=== PATIENT | female | born 1980 | race Caucasian/White ===

== ENCOUNTER → 2019-09-04 | Day surgery (SDC) | payer OTHER ==
[2019-08-29 14:29] VITALS: BMI 33.1
[2019-08-29 15:22] LABS: BHCG - Serum Negative (NEGATIVE); Pregs Control Background? CLEAR/WHITE (CLR/WHITE); Pregs Control Bar Appear? YES (CONTROL BAR)
[2019-08-29 15:23] LABS: Hemoglobin 9.4 g/dL (12.0-16.0); Mean Corpuscular HGB CONC 33.4 g/dL (32.0-36.0); Mean Corpuscular Hemoglobin 27.5 pg (27.0-31.0); Mean Corpuscular Volume 82.3 fL (78.0-98.0); Mean Platelet Volume 9.3 fL (7.4-10.4); Platelet Count 226 thou/uL (130-400); RBC Distribution Width 14.9 % (11.5-14.5); Red Blood Cell (RBC) Count 3.43 mill/uL (4.20-5.40); White Blood Cell (WBC) Count 5.6 thou/uL (4.8-10.8)
[~2019-09-04] MED LIST: Dexamethasone 20 MG/5 ML VIAL ONE; Fentanyl 100 MCG/2 ML VIAL ONE; Ketorolac Tromethamine 30 MG/ML VIAL ONE; Lidocaine 1% PF 5 ML VIAL ONE; Meperidine HCl/PF 25 MG/ML VIAL ONE; Midazolam HCl 2 mg/2 ml Vial ONE; Ondansetron PF 4 MG/2 ML Vial ONE; PROPOFOL 200 MG/20 ML VIAL ONE
--- NOTE | 2019-09-04 07:23 | HP ---
REASON FOR ADMISSION: Abnormal uterine bleeding with simple hyperplasia without atypia on EMB. SCHEDULED PROCEDURE: D and C, hysteroscopy. HISTORY OF PRESENT ILLNESS: The patient is a 39-year-old, 3, para 1, who has been my patient for a long time. 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 She developed intermenstrual bleeding and had an ultrasound with a 19 mm endometrial thickness. She has known PCOS which increased her risk of hyperplasia. EMB revealed hyperplasia simple without atypia because of 5% to 10% risk of occult malignancy. Decision was made to proceed with D and C, hysteroscopy for complete sampling of the endometrial cavity. 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 PAST MEDICAL HISTORY: As noted in the HPI. PAST SURGICAL HISTORY: None. ALLERGIES: DENIES. MEDICATIONS: Aygestin, , and montelukast. SOCIAL HISTORY: Denies tobacco, alcohol, or drug use. FAMILY HISTORY: Noncontributory. REVIEW OF SYSTEMS: Noncontributory. PHYSICAL EXAMINATION: VITAL SIGNS: White female, 5 feet 4 inches, 192, BMI 33. Blood pressure 136/72, pulse 99, respirations 18. HEENT: Within normal limits. LUNGS: Clear to auscultation bilaterally. HEART: Regular rhythm. BREASTS: No masses bilaterally. ABDOMEN: Soft, nontender. No rebound or guarding. : Vulva without lesions. Vagina without discharge. Cervix, nulliparous. Uterus, anteverted, 6- to 8-week size. Adnexa, no masses bilaterally. EXTREMITIES: No clubbing, cyanosis, or edema. DIAGNOSTIC DATA: Ultrasound and endometrial biopsy are noted. IMPRESSION: Simple hyperplasia with atypia. PLAN: D and C, hysteroscopy. The patient understands risks and benefits of procedure, bleeding, infection, perforation, and persistence of abnormal bleeding. Job ID: [id number]
--- NOTE | 2019-09-04 11:59 | OP ---
DATE OF PROCEDURE: 09/04/2019 PREOPERATIVE DIAGNOSIS: Simple endometrial hyperplasia without atypia. POSTOPERATIVE DIAGNOSIS: Simple endometrial hyperplasia without atypia. PROCEDURE PERFORMED: D and C hysteroscopy. ANESTHESIA: General endotracheal. ESTIMATED BLOOD LOSS: 25 mL. COMPLICATIONS: None. DRAINS: None. SPECIMENS: Endometrial curettings. OPERATIVE FINDINGS: 1. Pre and post sound to 8 to 9 cm. 2. Endometrial cavity with very proliferative appearing endometrium especially anteriorly, removed with curettage. 3. No evidence of perforation. 4. Total fluid volume greater than 500 mL, deficit 180 mL of normal saline with approximately 100 to 125 mL of normal saline leaked on the floor with the retrieval bag. DISPOSITION: Recovery room in good condition. DESCRIPTION OF PROCEDURE: The patient received appropriate antibiotics and DVT prophylaxis, was prepped and draped in dorsal lithotomy. Bladder drained of clear urine. Cervix identified, sounded to 8 to 9 cm, serially dilated up to appropriate level. A 5 mm hysteroscope was introduced max pressure of 80 mmHg with normal saline. Findings as noted. The operative findings were noted. Hysteroscope was removed and curetting was carried out. It was collected with a spoon and placed on a Telfa for pathologic analysis permanent. Hysteroscope was reintroduced. Some tissue was still noted and so curetting was repeated. Hysteroscope was reintroduced and no evidence of significant amount of tissue remaining was noted. No evidence of perforation was noted. The tenaculum was removed. The cervix was noted to be not bleeding. Speculum removed and the patient was awakened and extubated to recovery room in good condition. Job ID: [id number]
== END ==
LOC: SDC 10:08
PROVIDERS: ATTEND Obstetrics & Gynecology
PROC: 0UJD8ZZ Inspection of Uterus and Cervix, Via Natural or Artificial Opening Endoscopic (ICD-10-PCS; principal; 2019-09-04)
PROC: 0UDB7ZX Extraction of Endometrium, Via Natural or Artificial Opening, Diagnostic (ICD-10-PCS; principal; 2019-09-04)
DX: N85.02 Endometrial intraepithelial neoplasia [EIN] (principal); E28.2 Polycystic ovarian syndrome; D68.52 Prothrombin gene mutation; Z79.899 Other long term (current) drug therapy
CPT/HCPCS: 84703; 85027; 86850; 86900; 86901; 88305; J0690; J1100; J1885; J2001; J2175; J2250; J2405; J2704; J3010

== ENCOUNTER 2019-12-08 06:37 | Outpatient (CLI) | payer OTHER ==
[2019-12-08 12:26] VITALS: BMI 32.5
[2019-12-08 14:05] LABS: #Eosinphils 0.1 thou/uL (0.0-0.7); #Lymphocytes 2.1 thou/uL (1.20-3.40); #Monocytes 0.2 thou/uL (0.11-0.59); #Neutrophils 2.4 thou/uL (1.40-6.50); %Basophils 0.9 % (0.0-1.0); %Eosinophils 1.1 % (0.0-10.0); %Lymphocytes 43.9 % (21.0-51.0); %Monocytes 4.2 % (0.0-10.0); %Neutrophils 49.8 % (42.0-75.0); Hemoglobin 12.6 g/dL (12.0-16.0); Mean Corpuscular HGB CONC 31.7 g/dL (32.0-36.0); Mean Corpuscular Hemoglobin 25.5 pg (27.0-31.0); Mean Corpuscular Volume 80.6 fL (78.0-98.0); Mean Platelet Volume 11.3 fL (7.4-10.4); Platelet Count 172 thou/uL (130-400); RBC Distribution Width 21.1 % (11.5-14.5); Red Blood Cell (RBC) Count 4.94 mill/uL (4.20-5.40); White Blood Cell (WBC) Count 4.8 thou/uL (4.8-10.8)
[2019-12-09 17:20] LABS: SARS-CoV-2 MS2 Positive; SARS-CoV-2 N Gene Negative; SARS-CoV-2 S Gene Negative; SARS-CoV-2 orf1ab Negative
== END 2019-12-08 06:38 | disposition home or self-care (01) ==
LOC: LABBT 06:37
PROVIDERS: ATTEND Obstetrics & Gynecology
DX: Z01.812 Encounter for preprocedural laboratory examination (principal); Z11.59 Encounter for screening for other viral diseases; N85.01 Benign endometrial hyperplasia
CPT/HCPCS: 84702; 85025; 87635; U0003

== ENCOUNTER 2019-12-12 06:03 | Day surgery (SDC) | payer OTHER ==
[2019-12-12] MEDS ORDERED: CeleCOXIB 100 MG CAP ONE (06:12)
[2019-12-12] MEDS ORDERED: Gabapentin 300 MG CAP ONE (06:12)
[2019-12-12] MEDS ORDERED: Famotidine/PF 20 mg/2ml Vial ONE (06:13)
--- NOTE | 2019-12-12 06:27 | HP ---
REASON FOR ADMISSION: Complex hyperplasia with focal atypia. SCHEDULED PROCEDURE: Total laparoscopic hysterectomy, bilateral salpingectomy. HISTORY OF PRESENT ILLNESS: Ms. Stein is a 39-year-old 3, para 1, AB2, who has been my patient for a long time. She had a D and C, hysteroscopy back in August, which revealed complex hyperplasia with focal atypia. Because of this diagnosis and the risk of malignancy even after D and C developing in the future, the patient desires definitive management with hysterectomy. 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 2. SAB x2. 3. History of menorrhagia with PCOS. 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 PAST SURGICAL HISTORY: and D and C with hysteroscopy. ALLERGIES: DENIES. MEDICATIONS: Progestin and montelukast. SOCIAL HISTORY: Denies tobacco, alcohol, or IV drug abuse. FAMILY HISTORY: Noncontributory. PHYSICAL EXAMINATION: GENERAL: White female, 5 feet 4 inches, 195, BMI 33, blood pressure 128/82. HEENT: Within normal limits. LUNGS: Clear to auscultation bilaterally. HEART: Regular rhythm. BREASTS: No masses bilaterally. ABDOMEN: Soft, nontender. No rebound or guarding. PELVIC: Vulva, without lesions. Vagina, discharge. Cervix, nulliparous. Uterus, anteverted, 6 weeks to 8 weeks size, boggy. Adnexa, no masses bilaterally. EXTREMITIES: Without clubbing, cyanosis, or edema. LABORATORY DATA: D and C specimen from 09/05 reveals complex hyperplasia with focal atypia, squamous metaplasia with central necrosis, carcinoma not seen. IMPRESSION: Complex hyperplasia with atypia in a 39-year-old with PCOS and a prothrombin mutation. PLAN: Total laparoscopic hysterectomy, bilateral salpingectomy, appropriate antibiotic and DVT prophylaxis with SCDs. We will initiate Lovenox 40 daily postoperatively approximately 12 to 18 hours. We will continue that for 2 to 4 weeks until the patient is at normal ambulation. The patient understands small risk of occult malignancy to be found at the time of surgery, which may require referral for laparoscopic lymphadenectomy by pier hand helper/oncologist in the future if deemed necessary. Job ID: [id number]
[2019-12-12] MEDS ORDERED: Fentanyl 100 MCG/2 ML VIAL ONE ×2 (06:41→09:45)
[2019-12-12] MEDS ORDERED: HYDROmorphone 2 MG/ML VIAL ONE (06:42)
[2019-12-12] MEDS ORDERED: Bupivacaine PF 0.5% 30 ML VIAL ONE (06:59)
[2019-12-12] MEDS ORDERED: Lidocaine 1% w/Epinephrine 1:100K 20 ML VIAL ONE (06:59)
[2019-12-12] MEDS ORDERED: Midazolam HCl 2 mg/2 ml Vial ONE (07:16)
[2019-12-12] MEDS ORDERED: Ondansetron PF 4 MG/2 ML Vial IVP PRN (07:47)
[2019-12-12] MEDS ORDERED: HYDROcodone/Acetaminophen 5/325 mg Tablet PO PRN (07:47)
[2019-12-12] MEDS ORDERED: Morphine 4 MG/ML VIAL SLOW IVP PRN (07:47)
[2019-12-12] MEDS ORDERED: diphenhydrAMINE 25 MG CAP PO PRN (07:47)
[2019-12-12] MEDS ORDERED: Simethicone Chewable 80 MG TAB PO PRN (07:47)
[2019-12-12] MEDS ORDERED: Promethazine HCl 25 MG/ML VIAL IM PRN (07:47)
[2019-12-12] MEDS ORDERED: Zolpidem Tartrate 5 MG TAB PO PRN (07:47)
[2019-12-12] MEDS ORDERED: Bisacodyl 10 MG SUPP PR PRN (07:47)
[2019-12-12] MEDS ORDERED: Non-Formulary Medication 1 EACH PO PRN (09:30)
[2019-12-12] MEDS ORDERED: Promethazine HCl 25 MG/ML VIAL IM/IV PRN (09:30)
[2019-12-12] MEDS ORDERED: Ondansetron HCl/PF 4 MG/2 ML Vial IVP PRN (09:30)
[2019-12-12] MEDS: Loratadine 10 MG TAB PO SCH (12:00)
[2019-12-12] MEDS: Sodium Chloride 0.9% 1,000 ML IV SCH ×2 (12:00→12:12)
[2019-12-12] MEDS: Escitalopram Oxalate 10 mg Tablet PO SCH (12:00)
[2019-12-12] MEDS: Ketorolac Tromethamine 30 MG/ML VIAL IVP SCH ×2 (12:13→17:53)
[2019-12-12] MEDS ORDERED: Dexamethasone 20 MG/5 ML VIAL ONE (12:57)
[2019-12-12] MEDS ORDERED: Glycopyrrolate 0.2 MG/ML 5 ML SYRINGE ONE (12:57)
[2019-12-12] MEDS ORDERED: PROPOFOL 200 MG/20 ML VIAL ONE (12:57)
[2019-12-12] MEDS ORDERED: Lidocaine 1% PF 5 ML VIAL ONE (12:57)
[2019-12-12] MEDS ORDERED: Rocuronium Bromide 10 MG/ML (10ML VIAL) ONE (12:57)
[2019-12-12] MEDS ORDERED: Ondansetron PF 4 MG/2 ML Vial ONE (12:57)
[2019-12-12] MEDS ORDERED: Enoxaparin Sodium 40 MG/0.4 ML SYRINGE SC SCH (18:00)
--- NOTE | 2019-12-12 18:50 | OP ---
DATE OF PROCEDURE: 12/12/2019 PREOPERATIVE DIAGNOSES: Complex hyperplasia with focal atypia and menorrhagia. POSTOPERATIVE DIAGNOSES: Complex hyperplasia with focal atypia and menorrhagia plus possible endometriosis in the bladder. PROCEDURES PERFORMED: Total laparoscopic hysterectomy with bilateral salpingectomy with excision of bladder peritoneum endometriosis. BARGE WORKER: Olena Pace PA-C ESTIMATED BLOOD LOSS: 75 mL. DRAINS: Terry to gravity. MEDICATIONS: 2 g of Ancef pre-incision, DVT prophylaxis, SCDs plus Lovenox started approximately 8 hours postoperatively secondary to history of prothrombin mutation. OPERATIVE FINDINGS: 1. Atypical scarring lesion noted on the bladder, excised approximately 5 mm. 2. Normal-appearing uterus. 3. Normal-appearing tubes and ovaries bilaterally. 4. Hemostasis, clear urine. COUNTS: Correct at the end of the procedure. DISPOSITION: Recovery room in good condition. DESCRIPTION OF PROCEDURE: After obtaining appropriate informed consent, the patient was taken to the operating room, where general endotracheal anesthesia was achieved without difficulty. The patient was prepped and draped in dorsal lithotomy position in Varun stirrups. Sliding speculum was placed in vagina, cervix identified, grasped with single-toothed tenaculum at 12 o'clock, sounded to 8 cm. The BRIANA manipulator with 5-cm vaginal obturator and 8-cm uterine obturator were placed without difficulty. Terry catheter placed. Tenaculum and speculum were removed. Muck Miner changed his gloves and turned attention to abdominal portion of the procedure. A 5 mL of Marcaine was injected in the superior aspect of the umbilicus. A 12-mm skin incision was made, and Veress needle was placed inside the abdominal cavity. Insufflation was carried out with carbon dioxide for a maximum pressure of 15, volume approximately 3 L. A 12-mm Casi balloon trocar was placed without difficulty. Confirmation of entry into the peritoneal cavity without trauma to the underlying viscera was noted. Findings as noted in the operative findings were noted. The patient was placed in steep Trendelenburg position. The right and left lateral da Patricio robot trocars were placed under direct visualization as well as an assistant housekeeping manager port in the right upper quadrant. Da Patricio robot was docked with monopolar scissors in the right hand and bipolar fenestrated forceps in the left. Lesion that was noted on the peritoneum of the bladder was excised mostly sharply with some cautery and removed and sent individually for pathology. Uterus was mobilized, and the fallopian tube on the left was coagulated and transected across the mesosalpinx and removed after this was done the utero-ovarian on the left was coagulated and transected, the round, the broad, down to the level of the internal cervical os. The vesicouterine peritoneal fold was incised sharply, dissected off the lower uterine segment, cervix, and upper vagina and skeletonization of the uterine vessels was carried out on this side. There were coagulated and transected. Attention was turned to the right side where the identical procedure was carried out, removing the fallopian tube, coagulating, and transecting the utero-ovarian, the round, the broad, and down to the uterine vessels. These were coagulated and transected as well. The vagina was entered at 12 o'clock and extended from 12 to 3 and 12 to 9, then from 9 to 6 and 3 to 6, completely amputating the specimen. The specimen was pulled into the vagina. Hemostasis was achieved along the cuff. The cuff was closed using a running continuous 2-0 PDS suture lock from right to left and then back to right. Bladder was backfilled. No evidence of the bladder to be incorporated into the vaginal cuff closure or injured from the excision of the peritoneum. Specimen was noted. Suction irrigation was carried out. Good hemostasis was noted. Tisseel was applied across all surgical surfaces. The da Patricio was undocked after removing the instruments. The abdomen was deflated with carbon dioxide. Trocars were removed. The fascia at the umbilicus reapproximated using 0 Vicryl on a UR5 needle, and skin was reapproximated x4 using 4-0 Monocryl Dermabond. Specimen had been removed from the vagina. The vagina was inspected and noted to be without lacerations and dry. The patient was awakened and extubated to recovery room in good condition. Job ID: [id number]
[2019-12-12] MEDS: HYDROcodone/Acetaminophen 5/325 mg Tablet PO PRN (22:59)
[2019-12-13] MEDS: Sodium Chloride 0.9% 1,000 ML IV SCH ×2 (00:15→07:04)
[2019-12-13] MEDS: Ketorolac Tromethamine 30 MG/ML VIAL IVP SCH (00:38)
[2019-12-13 05:37] LABS: Hemoglobin 11.1 g/dL (12.0-16.0); Mean Corpuscular HGB CONC 31.5 g/dL (32.0-36.0); Mean Corpuscular Hemoglobin 25.7 pg (27.0-31.0); Mean Corpuscular Volume 81.7 fL (78.0-98.0); Mean Platelet Volume 11.1 fL (7.4-10.4); Platelet Count 157 thou/uL (130-400); RBC Distribution Width 19.9 % (11.5-14.5); White Blood Cell (WBC) Count 7.1 thou/uL (4.8-10.8)
[2019-12-13] MEDS ORDERED: Ibuprofen 800 MG TAB PO SCH (06:00)
[2019-12-13] MEDS: Escitalopram Oxalate 10 mg Tablet PO SCH (08:16)
[2019-12-13] MEDS: Loratadine 10 MG TAB PO SCH (08:16)
[2019-12-13 08:56] VITALS: BP 111/60; TEMP 98.5
[2019-12-13] MEDS: HYDROcodone/Acetaminophen 5/325 mg Tablet PO PRN (09:17)
--- NOTE | 2019-12-13 10:21 | DIS ---
DATE OF ADMISSION: 12/12/2019 DATE OF DISCHARGE: 12/13/2019 PRINCIPAL IN-HOSPITAL PROCEDURE: Total laparoscopic hysterectomy, bilateral salpingectomy, bladder peritoneum biopsy. SUMMARY OF HOSPITAL COURSE: The patient underwent the aforementioned procedure at approximately 0800 on 12/11. She had an unremarkable postoperative course. Terry catheter was removed early afternoon on 12/11. She is voiding with ease with no complaints. Hematocrit this morning is 35%. OBJECTIVE: VITAL SIGNS: Temperature 98.1, pulse 80, respirations 16, blood pressure 113/63. HEENT: Within normal limits. LUNGS: Clear to auscultation bilaterally. HEART: Regular rhythm. ABDOMEN: Soft and nontender. Incisions are intact x4. Perineum is dry. EXTREMITIES: Without clubbing, cyanosis, or edema. IMPRESSION: Status post hysterectomy, history of thrombophilia. PLAN: Discharge home. Lovenox 40 subcu daily until normal activities. [place] and ibuprofen sent preoperatively. Follow up in [facility] as already scheduled. We will follow up on Pathology when available. Job ID: [id number]
== END 2019-12-13 09:50 | disposition home or self-care (01) ==
LOC: SDC 06:03 → 3SE 11:55 → SDC 12-13 09:50
PROVIDERS: ATTEND Obstetrics & Gynecology
PROC: 0UT94ZZ Resection of Uterus, Percutaneous Endoscopic Approach (ICD-10-PCS; principal; 2019-12-13)
PROC: 0UT74ZZ Resection of Bilateral Fallopian Tubes, Percutaneous Endoscopic Approach (ICD-10-PCS; principal; 2019-12-13)
DX: N85.02 Endometrial intraepithelial neoplasia [EIN] (principal); Z79.899 Other long term (current) drug therapy
CPT/HCPCS: 36415; 85027; 86850; 86900; 86901; 88305; 88307; J0690; J1100; J1170; J1885; J2001; J2250; J2405; J2704; J3010; S0020; S0028

== ENCOUNTER 2020-08-22 08:19 | Outpatient (CLI) | payer BC ==
[2020-08-22 23:10] LABS: SARS-CoV-2 PCR by NAA Not Detected (NotDetected)
== END 2020-08-22 08:20 | disposition home or self-care (01) ==
LOC: LABBT 08:19
PROVIDERS: ATTEND Student in an Organized Health Care Education/Training Program
DX: E04.1 Nontoxic single thyroid nodule (principal); Z20.822 Contact with and (suspected) exposure to COVID-19
CPT/HCPCS: 87635; U0003; U0005

== ENCOUNTER 2020-08-27 10:56 | Day surgery (SDC) | payer BC ==
[~2020-08-27 10:56] MED LIST changes: -Dexamethasone 20 MG/5 ML VIAL ONE; +FLU VACC QS2020-21(6MOS UP)/PF 60 MCG/0.5 ML SYRINGE IM ONE; -Fentanyl 100 MCG/2 ML VIAL ONE; -Ketorolac Tromethamine 30 MG/ML VIAL ONE; -Lidocaine 1% PF 5 ML VIAL ONE; -Meperidine HCl/PF 25 MG/ML VIAL ONE; -Midazolam HCl 2 mg/2 ml Vial ONE; -Ondansetron PF 4 MG/2 ML Vial ONE; -PROPOFOL 200 MG/20 ML VIAL ONE
[2020-08-27] MEDS ORDERED: Lidocaine 1% PF 5 ML VIAL ONE (11:33)
[2020-08-27] MEDS ORDERED: Sodium Bicarbonate 2.5 MEQ/5 ML VIAL ONE (11:33)
--- NOTE | 2020-08-27 11:59 | CT ---
CT Neck Soft Tissue W Con HISTORY: Patient is previously reported a palpable abnormality in the lateral aspect of the left neck . She is unable to feel it at this time. COMPARISON: Neck ultrasound of 08/13/2020. FINDINGS: The visualized brain parenchyma is unremarkable. 2 small enhancing foci within the right pa rotid region may represent small intraparotid nodes. These are subcentimeter in size. The submandibular glands are normal. Small bilateral slightly numerous submandibular nodes are seen none of these appear significantly enlarged or pathologic in appearance. Small subcentimeter jugular chain lymph nodes are also present. The parapharyngeal spaces are clear. Vocal cord region appears un remarkable. Bilateral thyroid nodules are present. This is been described on a previous thyroid ultrasound. The lung apices are clear. IMPRESSION: 1. Small nonspecific submandibular and jugular chain lymph nodes none of which appear pathologically enlarged. 2. 2 small enhancing subcentimeter foci in the superior aspect of the superficial portion of the righ t parotid gland, these may represent small intraparotid nodes. 3. Thyroid nodules.
[2020-08-27] MEDS ORDERED: Iopamidol 370 76% 100 ML VIAL ONE (12:15)
--- NOTE | 2020-08-27 12:26 | ULT ---
THYROID NODULE FNA PREPROCEDURE DIAGNOSIS: Left thyroid nodule PROCEDURE: Left thyroid nodule FNA CASE REVIEWER: [place] ANESTHESIA: 5 mL of buffered 1% lidocaine SPECIMEN: 4 - 25-gauge FNA specimens of the left thyroid nodule TECHNIQUE: Prior to the procedure , the risks and benefits of a thyroid FNA were explained with the patient evelio palmer consented fully to the procedure. An ultrasound was used to identify the most suspicious thyroid nodule. The neck was then prepped and draped in the usual sterile fashion. Lidocaine was used to anesthetize the skin and soft tissues down towards the thyroid nodule. 4 separa te 25-gauge needles were then placed using ultrasound guidance into the nodule and specimen was obtained within the needle using a to and fro motion. These needles were placed in solution provided by pathology. The patient tolerated the procedure well without immediate post procedure complication.
[2020-08-27 12:52] VITALS: BP 155/81; TEMP 98.6; BMI 33.1
== END 2020-08-27 12:25 | disposition home or self-care (01) ==
LOC: CT 10:56
PROVIDERS: ATTEND Student in an Organized Health Care Education/Training Program
PROC: 0G9G3ZX Drainage of Left Thyroid Gland Lobe, Percutaneous Approach, Diagnostic (ICD-10-PCS; principal; 2020-08-27)
DX: E04.1 Nontoxic single thyroid nodule (principal); R22.1 Localized swelling, mass and lump, neck; E28.2 Polycystic ovarian syndrome; D68.52 Prothrombin gene mutation; F32.9 Major depressive disorder, single episode, unspecified; F41.9 Anxiety disorder, unspecified; Z79.899 Other long term (current) drug therapy
CPT/HCPCS: 60100; 70491; 76942; 88173; Q9967

== ENCOUNTER 2022-05-07 09:50 | Outpatient (CLI) | payer BC | END 2022-05-07 09:51 | disposition home or self-care (01) | LOC: BICMAMMO 09:50 | PROVIDERS: ATTEND Obstetrics & Gynecology | DX: N63.20 Unspecified lump in the left breast, unspecified quadrant (principal) | CPT/HCPCS: G0279 ==

== ENCOUNTER 2022-06-09 10:31 | Outpatient (CLI) | payer BC ==
[2022-06-09 11:46] LABS: #Monocytes 0.2 10x3/uL (0.0-1.1); #Neutrophils 2.1 10x3/uL (1.5-8.4); %Basophils 0.7 % (0.0-2.0); %Eosinophils 0.9 % (0.0-6.0); %Lymphocytes 45.8 % (18.0-47.0); %Monocytes 4.7 % (0.0-10.0); %Neutrophils 47.7 % (40.0-75.0); Hemoglobin 13.3 g/dL (12.0-15.5); Mean Corpuscular HGB CONC 34.5 g/dL (32.0-36.0); Mean Corpuscular Hemoglobin 30.3 pg (27.0-33.0); Mean Corpuscular Volume 87.9 fl (81.6-98.3); Mean Platelet Volume 10.8 fl (7.4-10.4); Platelet Count 179 10x3/uL (150-450); RBC Distribution Width 13.2 % (11.5-14.5); Red Blood Cell (RBC) Count 4.39 10x6/uL (3.90-5.03); White Blood Cell (WBC) Count 4.5 10x3/uL (3.5-10.5)
[2022-06-09 11:58] LABS: Anion Gap 12 mmol/L (10-20); BUN (Urea Nitrogen) 12 mg/dL (7.0-18.7); Calc. Creatinine Clearance 0 mL/min (70-130); Calcium 9.5 mg/dL (7.8-10.44); Carbon Dioxide 24 mmol/L (22-29); Chloride 106 mmol/L (98-107); Estimated GFR 99; Glucose 102 mg/dL (70-105); Potassium 4.3 mmol/L (3.5-5.1); Sodium 138 mmol/L (136-145)
== END 2022-06-09 10:32 | disposition home or self-care (01) ==
LOC: LABBT 10:31
PROVIDERS: ATTEND Specialist
DX: Z01.812 Encounter for preprocedural laboratory examination (principal); N63.20 Unspecified lump in the left breast, unspecified quadrant
CPT/HCPCS: 80048; 85025

== ENCOUNTER → 2022-06-11 | Day surgery (SDC) | payer BC | END | disposition home or self-care (01) | LOC: ULT 13:32 | PROVIDERS: ATTEND Specialist | DX: R92.8 Other abnormal and inconclusive findings on diagnostic imaging of breast (principal); Z53.8 Procedure and treatment not carried out for other reasons ==

== ENCOUNTER → 2022-06-15 | Day surgery (SDC) | payer BC | END | disposition home or self-care (01) | LOC: MAMMO 07:09 | PROVIDERS: ATTEND Specialist | PROC: 0HBU3ZX Excision of Left Breast, Percutaneous Approach, Diagnostic (ICD-10-PCS; principal; 2022-06-15) | DX: N60.92 Unspecified benign mammary dysplasia of left breast (principal); N60.22 Fibroadenosis of left breast | CPT/HCPCS: 19081; 88305; 88341; 88342 ==

== ENCOUNTER 2022-07-10 11:41 | Outpatient (CLI) | payer BC ==
[2022-07-10 12:18] LABS: #Eosinphils 0.1 10x3/uL (0.0-0.5); #Monocytes 0.2 10x3/uL (0.0-1.1); #Neutrophils 2.2 10x3/uL (1.5-8.4); %Basophils 0.4 % (0.0-2.0); %Eosinophils 1.1 % (0.0-6.0); %Lymphocytes 45.6 % (18.0-47.0); %Monocytes 3.9 % (0.0-10.0); %Neutrophils 48.8 % (40.0-75.0); Hemoglobin 13.3 g/dL (12.0-15.5); Mean Corpuscular HGB CONC 34.9 g/dL (32.0-36.0); Mean Corpuscular Hemoglobin 30.6 pg (27.0-33.0); Mean Corpuscular Volume 87.8 fl (81.6-98.3); Mean Platelet Volume 10.4 fl (7.4-10.4); Platelet Count 172 10x3/uL (150-450); RBC Distribution Width 13.2 % (11.5-14.5); Red Blood Cell (RBC) Count 4.34 10x6/uL (3.90-5.03); White Blood Cell (WBC) Count 4.6 10x3/uL (3.5-10.5)
[2022-07-10 12:24] LABS: Anion Gap 12 mmol/L (10-20); BUN (Urea Nitrogen) 11 mg/dL (7.0-18.7); Calc. Creatinine Clearance 0 mL/min (70-130); Calcium 9.1 mg/dL (7.8-10.44); Carbon Dioxide 21 mmol/L (22-29); Chloride 109 mmol/L (98-107); Estimated GFR 99; Glucose 115 mg/dL (70-105); Potassium 3.9 mmol/L (3.5-5.1); Sodium 138 mmol/L (136-145)
== END 2022-07-10 11:42 | disposition home or self-care (01) ==
LOC: LABBT 11:41
PROVIDERS: ATTEND Specialist
DX: Z01.812 Encounter for preprocedural laboratory examination (principal); N63.20 Unspecified lump in the left breast, unspecified quadrant; N60.92 Unspecified benign mammary dysplasia of left breast
CPT/HCPCS: 80048; 85025

== ENCOUNTER 2022-07-14 06:30 | Day surgery (SDC) | payer BC ==
[2022-07-10 12:09] VITALS: BMI 34.3
[2022-07-14] MEDS ORDERED: Lidocaine 1% PF 5 ML VIAL ONE (08:47)
[2022-07-14] MEDS ORDERED: Ondansetron PF 4 MG/2 ML Vial ONE (08:47)
[2022-07-14] MEDS ORDERED: PROPOFOL 200 MG/20 ML VIAL ONE (08:47)
[2022-07-14] MEDS ORDERED: Dexamethasone 20 MG/5 ML VIAL ONE (08:47)
[2022-07-14] MEDS ORDERED: Ketorolac Tromethamine 30 MG/ML VIAL ONE (08:47)
== END 2022-07-14 11:08 | disposition home or self-care (01) ==
LOC: MAMMO 06:30
PROVIDERS: ATTEND Specialist
PROC: 0HBU0ZX Excision of Left Breast, Open Approach, Diagnostic (ICD-10-PCS; principal; 2022-07-14)
DX: N60.32 Fibrosclerosis of left breast (principal); N60.02 Solitary cyst of left breast; N60.82 Other benign mammary dysplasias of left breast; N60.22 Fibroadenosis of left breast; N62 Hypertrophy of breast; Z79.899 Other long term (current) drug therapy
CPT/HCPCS: 19281; 76098; 88307; 88341; 88342; C1713; J1100; J1885; J2405; J2704

== ENCOUNTER 2023-04-28 09:15 | Outpatient (CLI) | payer BC | END 2023-04-28 09:16 | disposition home or self-care (01) | LOC: BICMAMMO 09:15 | PROVIDERS: ATTEND Specialist | DX: N60.92 Unspecified benign mammary dysplasia of left breast (principal) | CPT/HCPCS: 77066; G0279 ==